=== PATIENT | male | born 1980 | race Caucasian/White ===

== ENCOUNTER → 2017-02-27 | Outpatient (CLI) | payer OTHER ==
[~2017-02-27] MED LIST: CHOL100027 PO; GLGKIT INJ; HMLI SC; INSDGI SC; INSDGIPEN SC; NVLG SQ; ONDA4TAB10 SL
[2017-02-27 13:49] LABS: ESTIMATED AVERAGE GLUCOSE 180 mg/dl; HA1C FLAG Normal (Normal)
== END | disposition home or self-care (01) ==
LOC: C.LAB1850 11:48
PROVIDERS: ATTEND Internal Medicine Endocrinology, Diabetes & Metabolism
DX: E55.9 Vitamin D deficiency, unspecified (principal); E10.9 Type 1 diabetes mellitus without complications

== ENCOUNTER 2017-03-07 15:13 | Emergency (ER) | payer OTHER ==
[~2017-03-07 15:13] MED LIST changes: -CHOL100027 PO; -GLGKIT INJ; -INSDGIPEN SC; -NVLG SQ; -ONDA4TAB10 SL
[2017-03-07 15:16] VITALS: TEMP 36.6; Ht 175.3 cm
[2017-03-07] MEDS ORDERED: SODIUM CHLORIDE 0.9% 1000ML 1,000 ML IV STA (15:46)
[2017-03-07] MEDS ORDERED: NVLG SQ (15:58)
[2017-03-07] MEDS ORDERED: CHOL100027 PO (15:58)
[2017-03-07] MEDS ORDERED: INSDGIPEN SC (15:58)
[2017-03-07] MEDS ORDERED: GLGKIT INJ (15:58)
[2017-03-07 16:12] LABS: BASO % 0.2 %; BASO ABS # 0.03 K/uL (0-0.2); COMPLETE YES; EOS % 0.1 %; HEMATOCRIT 43.9 % (42-52); IG% 0.2 %; LYMPH % 5.3 %; LYMPH ABS # 0.71 K/uL (1.2-3.4); MEAN CELL VOLUME 98.4 fL (80-100); MEAN CORPUSCULAR HEMOGLOBIN 35.2 pg (25-34); MEAN CORPUSCULAR HGB CONC 35.8 g/dl (32-36); NEUT % 89.2 %; PLATELET COUNT 204 K/uL (130-400); RED BLOOD COUNT 4.46 M/uL (4.7-6.1); WHITE BLOOD COUNT 13.52 K/uL (4.8-10.8)
[2017-03-07 16:30] LABS: BLOOD UREA NITROGEN 16 mg/dl (7-18); BUN/CREATININE RATIO 26.5 (10-20); CALCIUM 8.6 mg/dl (8.5-10.1); CARBON DIOXIDE 26 mmol/L (21-32); CHLORIDE 110 mmol/L (98-107); CREATININE 0.61 mg/dl (0.60-1.40); GLUCOSE 153 mg/dl (70-99); POTASSIUM 4.1 mmol/L (3.5-5.1); SODIUM 144 mmol/L (136-145)
[2017-03-07 16:40] LABS: THYROID STIMULATING HORMONE 0.793 uIu/ml (0.300-4.500)
--- NOTE | 2017-03-07 16:46 | EMERGENCY ROOM VISIT NOTE ---
History Report prepared by [place]: Adama Vang Under the Supervision of: Dr. John Paul Doyle D.O. First contact with patient: 15:39 Chief Complaint: HYPOGLYCEMIA Stated Complaint: TYPE 1 DIABETES Nursing Triage Summary: Pt reports his BSG went "super low. All I remember is waking up after my sister gave me a glucagon shot." BSG taken following shot was 91 per pt report. BSG in triage 136 History of Present Illness The patient is a 36 year old male who presents to the Emergency Room with complaints of an episode of hypoglycemia occurring about 1.5 hours ago. He notes that this occurs occasionally in the morning and that he is able to normalize his blood sugar with having apples or juice, but reports that this episode was worse. He took 24 of Lantis at 0230 this morning, and his sister needed to administer a glucagon shot, after which his blood sugar was 91. He notes his blood sugar here was 136. The patient last ate last night. He notes currently having bilateral leg pain, and is unable to bear weight. He remarks that he feels like he needs a cane to walk right now. Source of History: patient Onset: about 1.5 hours ago Position: other (blood) Quality: other (hypoglycemia) Timing: other (episode) Note: The patient notes having bilateral leg pain. Review of Systems See HPI for pertinent positives & negatives. A total of 10 systems reviewed and were otherwise negative. Past Medical & Surgical Medical Problems: (1) History of diabetes mellitus Family History No pertinent family history stated. Social History Smoking Status: Current Every Day Smoker Occupation Status: employed Current/Historical Medications Scheduled Cholecalciferol (Vitamin D 1000 Unit), 1,000 INTER.UNIT PO DAILY Glucagon (Glucagon Emergency Kit), 1 MG INJ UD Insulin Aspart (Novolog), 20-25 UNITS SQ AC Insulin Glargine (Lantus Solostar), 24 UNITS SC QPM Allergies Coded Allergies: No Known Allergies (Unverified , 07/08/15) Physical Exam Vital Signs Date Time Temp Pulse Resp B/P Pulse Ox O2 Delivery O2 Flow Rate FiO2 03/07/17 16:00 85 03/07/17 15:16 36.6 92 20 159/105 97 Room Air Physical Exam CONSTITUTIONAL/VITAL SIGNS: Reviewed / noted above. GENERAL: Non-toxic in appearance. INTEGUMENTARY: Warm, dry, and [place]. HEAD: Normocephalic. EYES: without scleral icterus or trauma. ENT/OROPHARYNX: clear and moist. LYMPHADENOPATHY/NECK: Is supple without lymphadenopathy or meningismus. RESPIRATORY: Lungs clear and equal. CARDIOVASCULAR: Regular rate and rhythm. GI/ABDOMEN: Soft and nontender. No organomegaly or pulsatile mass. No rebound or guarding. Normal bowel sounds. EXTREMITIES: Mild tenderness to the superior calves bilaterally. BACK: No CVA tenderness. NEUROLOGICAL: Intact without focal deficits. PSYCHIATRIC: normal affect. MUSCULOSKELETAL: Normally developed with good muscle tone. Medical Decision & Procedures Laboratory Results 03/07/17 16:00 Red Blood Count 4.46, Mean Corpuscular Volume 98.4, Mean Corpuscular Hemoglobin 35.2, Mean Corpuscular Hemoglobin Concent 35.8, Mean Platelet Volume 10.0, Neutrophils (%) (Auto) 89.2, Lymphocytes (%) (Auto) 5.3, Monocytes (%) (Auto) 5.0, Eosinophils (%) (Auto) 0.1, Basophils (%) (Auto) 0.2, Neutrophils # (Auto) 12.05, Lymphocytes # (Auto) 0.71, Monocytes # (Auto) 0.68, Eosinophils # (Auto) 0.02, Basophils # (Auto) 0.03 03/07/17 16:00 Test 03/07/17 15:17 03/07/17 16:00 Bedside Glucose 136 mg/dl (70-99) White Blood Count 13.52 K/uL (4.8-10.8) Red Blood Count 4.46 M/uL (4.7-6.1) Hemoglobin 15.7 g/dL (14.0-18.0) Hematocrit 43.9 % (42-52) Mean Corpuscular Volume 98.4 fL (80-100) Mean Corpuscular Hemoglobin 35.2 pg (25-34) Mean Corpuscular Hemoglobin Concent 35.8 g/dl (32-36) Platelet Count 204 K/uL (130-400) Mean Platelet Volume 10.0 fL (7.4-10.4) Neutrophils (%) (Auto) 89.2 % Lymphocytes (%) (Auto) 5.3 % Monocytes (%) (Auto) 5.0 % Eosinophils (%) (Auto) 0.1 % Basophils (%) (Auto) 0.2 % Neutrophils # (Auto) 12.05 K/uL (1.4-6.5) Lymphocytes # (Auto) 0.71 K/uL (1.2-3.4) Monocytes # (Auto) 0.68 K/uL (0.11-0.59) Eosinophils # (Auto) 0.02 K/uL (0-0.5) Basophils # (Auto) 0.03 K/uL (0-0.2) RDW Standard Deviation 44.7 fL (36.4-46.3) RDW Coefficient of Variation 12.4 % (11.5-14.5) Immature Granulocyte % (Auto) 0.2 % Immature Granulocyte # (Auto) 0.03 K/uL (0.00-0.02) D-Dimer < 190 ug/L FEU (0-500) Anion Gap 8.0 mmol/L (3-11) Estimated GFR () 150.0 Estimated GFR (Non- 129.4 BUN/Creatinine Ratio 26.5 (10-20) Calcium Level 8.6 mg/dl (8.5-10.1) Thyroid Stimulating Hormone (TSH) 0.793 uIu/ml (0.300-4.500) Laboratory results as stated above per my review. Medications Administered Medications (Trade) Dose Ordered Sig/Amber Route Start Time Stop Time Status Last Admin Dose Admin Sodium Chloride (Nss 1000ml) 1,000 ml @ 999 mls/hr Q1H1M STAT IV 03/07/17 15:46 03/07/17 16:46 DC 03/07/17 16:01 999 MLS/HR ED Course 1541: Previous medical records were reviewed. The patient was evaluated in room A12B. A complete history and physical examination was performed. 1546: Ordered NSS 1,000 ml @ 999 mls/hr IV. 1655: On reevaluation, the patient is doing well. I discussed the results and findings with the patient. He verbalized agreement of the treatment plan. The patient was discharged home. Medical Decision Differential includes acute coronary syndrome, myocardial infarction, CVA, TIA, anemia, infection, pneumonia, UTI, pyelonephritis, poor nutrition, dehydration, electrolyte disturbance,hypoglycemia. This is a 36-year-old male who presents to the ED with a chief complaint of low blood sugar. The patient states that he worked until around 2:30 AM. When he was finished with work he took 24 units of Lantus. Around 2:10 PM, his family found him to be semi-responsive and agitated. They were unable to check a blood sugar but did give him an IM injection of glucose down. By the time EMS arrived, his blood sugar was 91. He was acting more normal. He was brought in for evaluation. His initial blood sugar here was 133. He last ate around 10: 30 PM yesterday. His vital signs here are normal. His physical exam was normal. He did complain of some upper calf pain. The family states that he was thrashing his legs about when he was fighting them during his hypoglycemic episode. His exam did not reveal any other significant abnormalities. He did have some mild tenderness in the upper calves bilaterally. This was not present yesterday. CBC is unremarkable. PRP is normal. D-dimer was negative. The patient was told results the test. He is felt to be stable for discharge. He was hydrated IV fluids. He was fed. Impression Primary Impression: Hypoglycemia Additional Impression: Bilateral calf pain Scribe Attestation The scribe's documentation has been prepared under my direction and personally reviewed by me in its entirety. I confirm that the note above accurately reflects all work, treatment, procedures, and medical decision making performed by me. Departure Information Dispostion Home / Self-Care Referrals No Doctor, Assigned (PCP) Forms HOME CARE DOCUMENTATION FORM, IMPORTANT VISIT INFORMATION, WORK / SCHOOL INSTRUCTIONS Patient Instructions Hypoglycemia, My [facility] Additional Instructions Follow-up with your doctor for further care and evaluation in 1-7 days as needed. Return to the emergency department for worsening or new symptoms or any concerns. You have been examined and treated today on an emergency basis only. This is not a substitute for, or an effort to provide, complete comprehensive medical care. It is impossible to recognize and treat all injuries or illnesses in a single emergency department visit. It is therefore important that you follow up closely with your doctor. Call as soon as possible for an appointment. Problem Qualifiers
[2017-03-07 17:00] VITALS: BP 130/79; PULSE 85; O2SAT 97
== END 2017-03-07 17:01 | disposition home or self-care (01) ==
LOC: C.EDB 15:14 → C.EDA 17:01
DX: E10.649 Type 1 diabetes mellitus with hypoglycemia without coma (principal); M79.604 Pain in right leg; M79.605 Pain in left leg; F17.200 Nicotine dependence, unspecified, uncomplicated

== ENCOUNTER → 2017-05-27 | Outpatient (CLI) | payer OTHER ==
[~2017-05-27] MED LIST changes: +CHOL100027 PO; +GLGKIT INJ; -HMLI SC; -INSDGI SC; +INSDGIPEN SC; +NVLG SQ
[2017-05-27 18:10] LABS: CHOLESTEROL/HDL RATIO 2.3
[2017-05-27 18:31] LABS: RATIO 19.7 mcg/mg (0-30.0)
[2017-05-28 06:48] LABS: ESTIMATED AVERAGE GLUCOSE 189 mg/dl; HA1C FLAG Normal (Normal)
== END | disposition home or self-care (01) ==
LOC: C.LAB1850 16:15
PROVIDERS: ATTEND Internal Medicine Endocrinology, Diabetes & Metabolism
DX: E55.9 Vitamin D deficiency, unspecified (principal); E10.9 Type 1 diabetes mellitus without complications

== ENCOUNTER 2017-07-24 09:36 | Observation (INO) | payer OTHER ==
[~2017-07-24] VITALS: Ht 175.3 cm; Wt 72.0 kg
[2017-07-24] MEDS ORDERED: ONDANSETRON 8 MG/54 ML D5W IV STA (09:57)
[2017-07-24] MEDS ORDERED: SODIUM CHLORIDE 0.9% 1000ML 1,000 ML IV STA ×2 (09:57)
[2017-07-24 10:18] LABS: BASO % 0.1 %; BASO ABS # 0.02 K/uL (0-0.2); COMPLETE YES; HEMATOCRIT 48.2 % (42-52); IG% 0.3 %; LYMPH % 6.7 %; LYMPH ABS # 0.98 K/uL (1.2-3.4); MEAN CELL VOLUME 101.7 fL (80-100); MEAN CORPUSCULAR HEMOGLOBIN 33.3 pg (25-34); MEAN CORPUSCULAR HGB CONC 32.8 g/dl (32-36); MEAN PLATELET VOLUME 10.8 fL (7.4-10.4); MONO % 5.8 %; NEUT % 87.1 %; PLATELET COUNT 276 K/uL (130-400); RED BLOOD COUNT 4.74 M/uL (4.7-6.1); WHITE BLOOD COUNT 14.58 K/uL (4.8-10.8)
[2017-07-24 10:45] LABS: POTASSIUM 4.5 mmol/L (3.5-5.1)
[2017-07-24 10:50] LABS: BUN/CREATININE RATIO 16.1 (10-20); CALCIUM 9.6 mg/dl (8.5-10.1); CREATININE 1.5 mg/dl (0.60-1.40)
--- NOTE | 2017-07-24 10:58 | DIAGNOSTIC IMAGING REPORT ---
CHEST ONE VIEW PORTABLE CLINICAL HISTORY: Fever vomiting sore throat COMPARISON STUDY: No previous studies for comparison. FINDINGS: The cardiac and mediastinal contours are normal. There is no evidence of focal pulmonary consolidation. There is no evidence of failure. No pleural effusions are visualized.[ IMPRESSION: No active disease in the chest. Electronically signed by: Rom Francois M.D. 07/24/2017 10:56 AM Dictated Date/Time: 07/24/2017 10:55 AM
[2017-07-24 11:03] LABS: URINE APPEARANCE CLEAR (CLEAR); URINE BILIRUBIN NEG (NEG); URINE COLOR YELLOW; URINE NITRITE NEG (NEG); URINE SPECIFIC GRAVITY 1.036 (1.000-1.030); UROBILINOGEN NEG (NEG); ZZUR CULT IF INDIC CLEAN CATCH NO
[2017-07-24] MEDS ORDERED: INSULIN IV INFUSION PROTOCOL STA (11:10)
[2017-07-24 11:12] LABS: MANUAL MICROSCOPIC REQUIRED? NO; REVIEW REQ? NO
[2017-07-24] MEDS ORDERED: MODERATE STRESS LEVEL ONE (11:15)
[2017-07-24] MEDS ORDERED: PENDING D5 1/2NS+40mEq KCL IVF SCH (11:15)
[2017-07-24] MEDS ORDERED: DKA GOAL RANGE 150-250 mg/dl 1 EA ONE (11:15)
[2017-07-24 11:22] LABS: BETA-HYDROXYBUTYRATE 90.38 mg/dL (0.2-2.81)
--- NOTE | 2017-07-24 11:44 | EMERGENCY ROOM VISIT NOTE ---
History Report prepared by [place]: Stan Mcgill Under the Supervision of: Dr. Tony Peter M.D. First contact with patient: 09:45 Chief Complaint: VOMITING Stated Complaint: FEVER, VOMITING, SHORETHROAT, HEADACHE Nursing Triage Summary: pt has had vomiting since yesterday pt is insulin dependent diabetic, bsbs in 400s pt has haeadache History of Present Illness The patient is a 37 year old white male with a past medical history of diabetes who presents to the ED with a cc of persistent vomiting beginning yesterday. Unable to keep down any food or drink. Vomited over 10 times total. Positive nausea and non-productive cough. Negative abdominal pain, urinary symptoms, or diarrhea. No recent travel. No recent antibiotic use. Did not receive flu shot this year. Blood sugar has been running high recently. Uses Lantus and NovoLog pre-meals. No missed doses of insulin recently. No history of similar symptoms. Last bowel movement was yesterday. Has been able to pass gas today. Source of History: patient Onset: Yesterday Symptom Intensity: over 10 episodes Quality: other (vomiting) Timing: other (persistent) Associated Symptoms: + cough (non-productive), + nausea, No abdominal pain, No diarrhea, No urinary symptoms Review of Systems See HPI for pertinent positives and negatives. A total of ten systems were reviewed and were otherwise negative. Past Medical & Surgical Medical Problems: (1) Gastroenteritis due to food toxin (2) History of diabetes mellitus Family History No pertinent family history stated. Social History Smoking Status: Current Every Day Smoker Occupation Status: employed Current/Historical Medications Scheduled Cholecalciferol (Vitamin D 1000 Unit), 1,000 INTER.UNIT PO DAILY Glucagon (Glucagon Emergency Kit), 1 MG INJ UD Insulin Aspart (Novolog), 1 DOSE SQ DIRECTED Insulin Glargine (Lantus Solostar), 20 UNITS SC QPM Allergies Coded Allergies: No Known Allergies (Unverified , 07/08/15) Physical Exam Vital Signs Date Time Temp Pulse Resp B/P (MAP) Pulse Ox O2 Delivery O2 Flow Rate FiO2 07/24/17 12:07 99 18 141/64 99 Room Air 07/24/17 11:53 98 Room Air 07/24/17 11:43 103 20 133/72 98 Room Air 07/24/17 10:18 86 07/24/17 10:17 98 20 140/77 100 Room Air 07/24/17 09:40 37.0 Room Air Physical Exam GENERAL: Awake, alert, anxious-appearing, NAD HENT: Normocephalic, atraumatic. No exudates. No tonsillar swelling. No uvular deviation. Poor dentition. EYES: Normal conjunctiva. Sclera non-icteric. NECK: Supple. No nuchal rigidity. FROM. RESPIRATORY: CTAB, no rhonchi, wheezing, crackles CARDIAC: Tachycardic with a regular rhythm, no MRG ABDOMEN: Soft, ND, BS+. Epigastric TTP. Negative Al[place]zo, Obturators and Psoas. MSK: No chest wall TTP, no LE edema NEURO: GCS 15, CN 2-12 intact, moves all 4s on command SKIN: No rash or jaundice noted. Medical Decision & Procedures ER Provider Diagnostic Interpretation: X-ray: Per my interpretation, radiologist review. CHEST ONE VIEW PORTABLE FINDINGS: The cardiac and mediastinal contours are normal. There is no evidence of focal pulmonary consolidation. There is no evidence of failure. No pleural effusions are visualized.[ IMPRESSION: No active disease in the chest. Electronically signed by: Rom Francois M.D. 07/24/2017 10:56 AM Laboratory Results 07/24/17 10:00 Red Blood Count 4.74, Mean Corpuscular Volume 101.7, Mean Corpuscular Hemoglobin 33.3, Mean Corpuscular Hemoglobin Concent 32.8, Mean Platelet Volume 10.8, Neutrophils (%) (Auto) 87.1, Lymphocytes (%) (Auto) 6.7, Monocytes (%) ( Auto) 5.8, Eosinophils (%) (Auto) 0.0, Basophils (%) (Auto) 0.1, Neutrophils # ( Auto) 12.69, Lymphocytes # (Auto) 0.98, Monocytes # (Auto) 0.84, Eosinophils # ( Auto) 0.00, Basophils # (Auto) 0.02 Test 07/24/17 10:00 07/24/17 10:09 07/24/17 10:50 07/24/17 12:16 White Blood Count 14.58 K/uL (4.8-10.8) Red Blood Count 4.74 M/uL (4.7-6.1) Hemoglobin 15.8 g/dL (14.0-18.0) Hematocrit 48.2 % (42-52) Mean Corpuscular Volume 101.7 fL (80-100) Mean Corpuscular Hemoglobin 33.3 pg (25-34) Mean Corpuscular Hemoglobin Concent 32.8 g/dl (32-36) Platelet Count 276 K/uL (130-400) Mean Platelet Volume 10.8 fL (7.4-10.4) Neutrophils (%) (Auto) 87.1 % Lymphocytes (%) (Auto) 6.7 % Monocytes (%) (Auto) 5.8 % Eosinophils (%) (Auto) 0.0 % Basophils (%) (Auto) 0.1 % Neutrophils # (Auto) 12.69 K/uL (1.4-6.5) Lymphocytes # (Auto) 0.98 K/uL (1.2-3.4) Monocytes # (Auto) 0.84 K/uL (0.11-0.59) Eosinophils # (Auto) 0.00 K/uL (0-0.5) Basophils # (Auto) 0.02 K/uL (0-0.2) RDW Standard Deviation 44.1 fL (36.4-46.3) RDW Coefficient of Variation 11.8 % (11.5-14.5) Immature Granulocyte % (Auto) 0.3 % Immature Granulocyte # (Auto) 0.05 K/uL (0.00-0.02) Venous Blood pH 7.28 (7.36-7.41) Total Bilirubin 0.8 mg/dl (0.2-1) Direct Bilirubin 0.2 mg/dl (0-0.2) Aspartate Amino Transf (AST/SGOT) 33 U/L (15-37) Alanine Aminotransferase (ALT/SGPT) 39 U/L (12-78) Alkaline Phosphatase 65 U/L (45-117) Total Protein 8.3 gm/dl (6.4-8.2) Albumin 4.4 gm/dl (3.4-5.0) Lipase 78 U/L (73-393) Bedside Lactic Acid Venous 3.69 mmol/L (0.90-1.70) Urine Color YELLOW Urine Appearance CLEAR (CLEAR) Urine pH 5.0 (4.5-7.5) Urine Specific [place] 1.036 (1.000-1.030) Urine Protein TRACE (NEG) Urine Glucose (UA) 3+ (NEG) Urine Ketones 4+ (NEG) Urine Occult Blood NEG (NEG) Urine Nitrite NEG (NEG) Urine Bilirubin NEG (NEG) Urine Urobilinogen NEG (NEG) Urine Leukocyte Esterase NEG (NEG) Urine WBC (Auto) 0 /hpf (0-5) Urine RBC (Auto) 0-4 /hpf (0-4) Urine Hyaline Casts (Auto) 1-5 /lpf (0-5) Urine Epithelial Cells (Auto) 5-10 /lpf (0-5) Urine Bacteria (Auto) NEG (NEG) Est Creatinine Clear Calc Drug Dose 97.9 ml/min Laboratory results reviewed by me Medications Administered Medications (Trade) Dose Ordered Sig/Amber Route Start Time Stop Time Status Last Admin Dose Admin Sodium Chloride 1,000 ml @ 999 mls/hr Q1H1M STAT IV 07/24/17 09:57 07/24/17 10:57 DC 07/24/17 10:16 999 MLS/HR Ondansetron HCl (Zofran 8mg Iv) 8 mg NOW STAT IV 07/24/17 09:57 07/24/17 09:58 DC 07/24/17 10:16 8 MG Sodium Chloride 1,000 ml @ 999 mls/hr Q1H1M STAT IV 07/24/17 09:57 07/24/17 10:57 DC 07/24/17 11:09 999 MLS/HR Sodium Chloride 1,000 ml @ 999 mls/hr Q1H1M IV 07/24/17 12:00 07/24/17 13:37 DC 07/24/17 12:00 999 MLS/HR ED Course 0947: The patient was evaluated in room B8. A complete history and physical exam was performed. Bedside BSG is 345. 0957: ORdered Sodium Chloride 1000 ml @ 999 mls/hr IV, Zofran 8 mg IV, Sodium Chloride 1000 ml @ 999 mls/hr IV. 110: Ordered Insulin IV Infusion Protocol. 1135: Upon reexamination, the patient was resting comfortably. I discussed the test results and treatment plan with him. The patient will be evaluated for further management. Medical Decision The patient is a 37 year old white male with a past medical history of diabetes who presents to the ED with a cc of persistent vomiting beginning yesterday. Differential diagnosis includes etiologies such as DKA, appendicitis, diverticulitis, PUD, biliary pathology, UTI, pancreatitis, obstruction, mesenteric ischemia, aortic pathology, infections, inflammatory bowel disease, renal colic, as well as others were entertained. Patient was seen and evaluated. Patient had concerning signs for diabetic ketoacidosis as the patient had elevated blood sugars and anion gap decreased bicarbonate lactate and elevated beta hydroxybutyrate. Patient was given fluids and started on insulin drip. Patient was admitted to the hospitalist service. Patient was subsequently transitioned sliding scale and was able to tolerate by mouth fluids at the bedside. Patient's nausea had resolved. Medication Reconcilliation Current Medication List: was personally reviewed by me Blood Pressure Screening Patient's blood pressure: Elevated blood pressure Blood pressure disposition: Elevated BP felt to be situational Consults Time Called: 1138 Consulting Physician[facility] [place] Returned Call: [phone] Discussed the patient's case. The patient will be evaluated for further treatment and disposition. Impression Primary Impression: DKA (diabetic ketoacidoses) Additional Impressions: Hyperglycemia Lactic acid acidosis Nausea & vomiting Critical Care I have personally spent greater than 47 minutes of critical care time in the direct management of this patient. This includes bedside care, interpretation of diagnostic studies, and testing, discussion with consultants, patient, and family members, and other required patient management activities. This 47 minutes is in excess of all separately billable procedures. Scribe Attestation The scribe's documentation has been prepared under my direction and personally reviewed by me in its entirety. I confirm that the note above accurately reflects all work, treatment, procedures, and medical decision making performed by me. Departure Information Dispostion Being Evaluated By Hospitalist Referrals RV. Montgomery MD (PCP) Patient Instructions My [facility] Problem Qualifiers Primary Impression: DKA (diabetic ketoacidoses) Diabetes mellitus type: type 1 Diabetes mellitus complication detail: without coma Qualified Codes: E10.10 - Type 1 diabetes mellitus with ketoacidosis without coma Additional Impressions: Nausea & vomiting Vomiting type: unspecified Vomiting Intractability: non-intractable Qualified Codes: R11.2 - Nausea with vomiting, unspecified
[2017-07-24 11:53] VITALS: O2SAT 98; BMI 22.1
[2017-07-24] MEDS ORDERED: INSULIN HUMAN REGULAR IV BOLUS 1.5 UNIT in SYRINGE 0 ML IV ONE (12:00)
[2017-07-24] MEDS ORDERED: INSULIN REGULAR 250 UNITS in SODIUM CHLORIDE 0.9% 250ML 250 ML IV SCH (12:00)
[2017-07-24] MEDS ORDERED: SODIUM CHLORIDE 0.9% 1000ML 1,000 ML IV SCH (12:00)
[2017-07-24] MEDS ORDERED: ONDANSETRON INJ 2 MG/ML 2 ML VIAL IV PRN (12:15)
[2017-07-24] MEDS ORDERED: ACETAMINOPHEN 325 MG TAB PO PRN (12:15)
[2017-07-24] MEDS ORDERED: ZOLPIDEM TARTRATE 5 MG TAB PO PRN (12:15)
[2017-07-24] MEDS ORDERED: GLUCAGON FOR INJ 1 MG VIAL SQ PRN (12:30)
[2017-07-24] MEDS: INSULIN ASPART 100 UNITS/ML 3 ML PEN SC SCH ×6 (12:30→22:34)
[2017-07-24] MEDS ORDERED: GLUCOSE 10 TABS/TUBE PO PRN (12:30)
[2017-07-24] MEDS ORDERED: DEXTROSE 50% 50 ML SYR IV PRN (12:30)
[2017-07-24] MEDS ORDERED: GLUCOSE 40% GEL 15 GM TUBE PO PRN (12:30)
--- NOTE | 2017-07-24 12:37 | History and Physical ---
History & Physical Date & Time of Service: Jul 24, 2017 at 12:23 Chief Complaint: Fever, Vomiting, Shorethroat, Headache Primary Care Physician: RV. Montgomery MD History of Present Illness Source: patient, family The patient is a 37-year-old male who presents emergency department with 7-8 episodes of nausea and vomiting since yesterday afternoon. 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 He reports that he vomited and pupils yards on several occasions on the way home, and lay down in the grass for a while. He was sipping propel drink frequently. He reports he continued to have episodes of nausea and vomiting overnight, and then upon the urging of his family this morning, who presents emergency department for assessment. He typically takes Lantus insulin at 12:30 1:00 in the morning when he gets home from work. He did take his Lantus last night at 3:00 AM. He has not had any recent travels or any sick exposures. Family History Noncontributory Social History Smoking Status: Current Every Day Smoker Smokeless Tobacco Use: No Alcohol Use: none Drug Use: cocaine Marital Status: in relationship Housing status: lives with significant other Occupational Status: employed Immunizations History of Influenza Vaccine: Unknown History of Tetanus Vaccine?: Unknown History of Pneumococcal: Unknown History of Hepatitis B Vaccine: Unknown Multi-Drug Resistant Organisms History of MDRO: No Allergies Coded Allergies: No Known Allergies (Unverified , 07/08/15) Home Medications Scheduled Cholecalciferol (Vitamin D 1000 Unit), 1,000 INTER.UNIT PO DAILY Glucagon (Glucagon Emergency Kit), 1 MG INJ UD Insulin Aspart (Novolog), 1 DOSE SQ DIRECTED Insulin Glargine (Lantus Solostar), 20 UNITS SC QPM Review of Systems The patient denies chest pain, palpitations, shortness of breath, cough, lower extremity swelling, vision change, hearing change, sore throat, fevers, chills, sweats, weight change, fatigue, diarrhea or constipation, pelvic pain, blood in urine or stool, dysuria, urinary frequency or urgency, dizziness, headache, memory loss, rash, abnormal bruising or bleeding, imbalance, focal or generalized weakness, numbness or tingling in arms or legs, generalized arthralgias or myalgias, back or neck pain, night sweats, or allergy symptoms. The review of systems is otherwise negative other than for that already noted above, and at least 10 systems have been reviewed. Physical Exam Vital Signs Date Time Temp Pulse Resp B/P (MAP) Pulse Ox O2 Delivery O2 Flow Rate FiO2 07/24/17 12:07 99 18 141/64 99 Room Air 07/24/17 11:53 98 Room Air 07/24/17 11:43 103 20 133/72 98 Room Air 07/24/17 10:18 86 07/24/17 10:17 98 20 140/77 100 Room Air 07/24/17 09:40 37.0 Room Air The patient is awake, alert and oriented 3, normocephalic and atraumatic, facial complexion is acutely alyce, looks very dehydrated, otherwise is lying in bed and in no acute distress. HEENT--PERRL, EOMI, mucous membranes and oropharynx very dry. Neck--supple, no JVD or bruits, thyroid normal, trachea midline, no adenopathy. Heart--normal S1 and S2, no extra beats, no murmurs, rubs or gallops. Lungs--clear bilaterally with good air movement, no respiratory distress, no accessory muscle use. Abdomen--normal bowel sounds and soft, nontender and nondistended, no hernias or masses, no organomegaly. Extremities--no cyanosis, clubbing or edema. There are good distal pulses b/l. Dermatologic--normal skin turgor, normal color, warm and dry, no abnormal lymph nodes, no rash. Neurologic--cranial nerves II through XII grossly intact, motor and sensory examination normal. Rheumatologic--normal range of motion, nontender, muscles and joints. Psychiatric--normal affect. Diagnostics Laboratory Results Results Past 24 Hours Test 07/24/17 09:50 07/24/17 10:00 07/24/17 10:09 07/24/17 10:50 Range/Units Bedside Glucose 345 70-99 mg/dl White Blood Count 14.58 4.8-10.8 K/uL Red Blood Count 4.74 4.7-6.1 M/uL Hemoglobin 15.8 14.0-18.0 g/dL Hematocrit 48.2 42-52 % Mean Corpuscular Volume 101.7 80-100 fL Mean Corpuscular Hemoglobin 33.3 25-34 pg Mean Corpuscular Hemoglobin Concent 32.8 32-36 g/dl Platelet Count 276 130-400 K/uL Mean Platelet Volume 10.8 7.4-10.4 fL Neutrophils (%) (Auto) 87.1 % Lymphocytes (%) (Auto) 6.7 % Monocytes (%) (Auto) 5.8 % Eosinophils (%) (Auto) 0.0 % Basophils (%) (Auto) 0.1 % Neutrophils # (Auto) 12.69 1.4-6.5 K/uL Lymphocytes # (Auto) 0.98 1.2-3.4 K/uL Monocytes # (Auto) 0.84 0.11-0.59 K/uL Eosinophils # (Auto) 0.00 0-0.5 K/uL Basophils # (Auto) 0.02 0-0.2 K/uL RDW Standard Deviation 44.1 36.4-46.3 fL RDW Coefficient of Variation 11.8 11.5-14.5 % Immature Granulocyte % (Auto) 0.3 % Immature Granulocyte # (Auto) 0.05 0.00-0.02 K/uL Venous Blood pH 7.28 7.36-7.41 Sodium Level 136 136-145 mmol/L Potassium Level 4.5 3.5-5.1 mmol/L Chloride Level 101 98-107 mmol/L Carbon Dioxide Level 14 21-32 mmol/L Anion Gap 21.0 3-11 mmol/L Blood Urea Nitrogen 24 7-18 mg/dl Creatinine 1.50 0.60-1.40 mg/dl Est Creatinine Clear Calc Drug Dose 65.3 ml/min Estimated GFR () 68.4 Estimated GFR (Non- 59.0 BUN/Creatinine Ratio 16.1 10-20 Random Glucose 338 70-99 mg/dl Calcium Level 9.6 8.5-10.1 mg/dl Total Bilirubin 0.8 0.2-1 mg/dl Direct Bilirubin 0.2 0-0.2 mg/dl Aspartate Amino Transf (AST/SGOT) 33 15-37 U/L Alanine Aminotransferase (ALT/SGPT) 39 12-78 U/L Alkaline Phosphatase 65 45-117 U/L Total Protein 8.3 6.4-8.2 gm/dl Albumin 4.4 3.4-5.0 gm/dl Lipase 78 73-393 U/L Beta-Hydroxybutyric Acid 90.38 0.2-2.81 mg/dL Bedside Lactic Acid Venous 3.69 0.90-1.70 mmol/L Urine Color YELLOW Urine Appearance CLEAR CLEAR Urine pH 5.0 4.5-7.5 Urine Specific Gunpowder 1.036 1.000-1.030 Urine Protein TRACE NEG Urine Glucose (UA) 3+ NEG Urine Ketones 4+ NEG Urine Occult Blood NEG NEG Urine Nitrite NEG NEG Urine Bilirubin NEG NEG Urine Urobilinogen NEG NEG Urine Leukocyte Esterase NEG NEG Urine WBC (Auto) 0 0-5 /hpf Urine RBC (Auto) 0-4 0-4 /hpf Urine Hyaline Casts (Auto) 1-5 0-5 /lpf Urine Epithelial Cells (Auto) 5-10 0-5 /lpf Urine Bacteria (Auto) NEG NEG Test 07/24/17 11:37 07/24/17 11:58 07/24/17 12:06 Range/Units Bedside Glucose 268 70-99 mg/dl Diagnostic Radiology Patient Name: GONZALO LINDQUIST Unit Number: [id number] Dictated: 07/24/171054 Transcribed: 07/24/171054 ARG Printed Date/Time: [~ rep prt dt]/[~ rep prt tm] [~ rep ct labl] - [~ rep ct ivnm] [facility] Radiology [place] [address] Dictated: 07/24/171054 Transcribed: 07/24/171054 ARG Printed Date/Time: [~ rep prt dt]/[~ rep prt tm] [~ rep ct labl] - [~ rep ct ivnm] CHEST ONE VIEW PORTABLE CLINICAL HISTORY: Fever vomiting sore throat COMPARISON STUDY: No previous studies for comparison. FINDINGS: The cardiac and mediastinal contours are normal. There is no evidence of focal pulmonary consolidation. There is no evidence of failure. No pleural effusions are visualized.[ IMPRESSION: No active disease in the chest. Electronically signed by: Rom Francois M.D. 07/24/2017 10:56 AM Dictated Date/Time: 07/24/2017 10:55 AM The status of this report is Signed. Draft = Not yet reviewed or approved by Radiologist. Signed = Reviewed and approved by Radiologist. <AttendingPhy></AttendingPhy> <FamilyPhy>RV. Montgomery MD</ FamilyPhy> <PrimaryPhy>RV. Montgomery MD</PrimaryPhy> <UnitNumber> [id number]</UnitNumber> <VisitNumber>[id number]</VisitNumber> <PatientName> GONZALO LINDQUIST</PatientName> <DateOfBirth>1980</DateOfBirth> <Location>[facility] </Location> <ServiceDate>07/24/17</ServiceDate> <MNE>ESINDI</MNE> <OrderingPhy> Tony Peter M.D.</OrderingPhy> <OrderingPhyMNE>f rep ord dr aguiar</ OrderingPhyMNE> <DictatingPhyMNE>f rep dict dr aguiar</DictatingPhyMNE> <CCListMNE> f rep ct pelone</CCListMNE> <AdmittingPhyMNE>f pt admit dr aguiar</AdmittingPhyMNE> < AttendingPhyMNE>f pt attend dr aguiar</AttendingPhyMNE> <ConsultingPhyMNE>f pt consult dr aguiar</ConsultingPhyMNE> <FamilyPhyMNE>f pt fam dr aguiar</FamilyPhyMNE> <OtherPhyMNE>f pt other dr aguiar</OtherPhyMNE> < PrimaryPhyMNE>f pt prim care dr aguiar</PrimaryPhyMNE> <ReferringPhyMNE>f pt referring dr aguiar</ReferringPhyMNE> Impression Assessment and Plan DKA in a type I diabetic who is usually under good control/secondary to gastroenteritis due to food toxin-- Admitted to telemetry unit due to need for frequent glucose monitoring. He took his usual dosing of Lantus 20 units at approximately 3 AM. He usually takes it around 12:30 -1:00 AM when he gets home from work. He reports he is feeling better after 2 L of fluid in the emergency department. He reports that he ate a lot of hot sauce on top of chicken fingers approximately 36 hours ago and that this was the likely offending agent. Check a BMP, magnesium, phosphorus, venous blood gas, beta hydroxybutyric acid at 4 intervals for the next [address] on D5 half-normal saline which KCl 20 mEq at 250 ML's per hour. Patient will have Accu-Cheks every 2 hours, and will provide his own scale for coverage, and will notify nursing of blood sugar level and coverage that he has used. Zofran 4 mg IV every 6 hours when necessary with repeat in 30 minutes if needed. Famotidine 20 mg IV every 12 hours with first dose now. Level of Care Telemetry Advanced Directives Existing Advance Directive: No Existing Living Will: No Existing Power of Cloth Handler: No Resuscitation Status FULL RESUSCITATION VTE Prophylaxis VTE Risk Assessment Done? Y/N: Yes Risk Level: Low Given or contraindicated: SCD's Social Service Consult None Apply
[2017-07-24 13:00] VITALS: BP 123/65; PULSE 99; TEMP 36.9; O2SAT 99
[2017-07-24] MEDS ORDERED: INSULIN ASPART 100 UNITS/ML 3 ML PEN SC SCH (13:00)
[2017-07-24 13:12] LABS: BLOOD UREA NITROGEN 20 mg/dl (7-18); BUN/CREATININE RATIO 20.4 (10-20); CARBON DIOXIDE 17 mmol/L (21-32); CHLORIDE 107 mmol/L (98-107); GLUCOSE 250 mg/dl (70-99); SODIUM 137 mmol/L (136-145)
[2017-07-24] MEDS ORDERED: FAMOTIDINE IV INJ 20 MG in DEXTROSE 5% 100ML 100 ML IV STA (13:34)
[2017-07-24] MEDS: D5W AND 1/2NSS + 20MEQ KCL 1,000 ML IV SCH ×2 (14:01→17:59)
[2017-07-24 14:04] LABS: POTASSIUM 4.6 mmol/L (3.5-5.1)
[2017-07-24 14:17] LABS: CALCIUM 8.1 mg/dl (8.5-10.1)
[2017-07-24 14:50] LABS: BETA-HYDROXYBUTYRATE 76.36 mg/dL (0.2-2.81)
[2017-07-24 16:00] VITALS: O2SAT 99; Ht 175.3 cm; Wt 72.0 kg
[2017-07-24 16:50] LABS: BETA-HYDROXYBUTYRATE 38.55 mg/dL (0.2-2.81); BUN/CREATININE RATIO 17.9 (10-20); CALCIUM 8.1 mg/dl (8.5-10.1); MAGNESIUM 1.9 mg/dl (1.8-2.4); PHOSPHORUS 1.5 mg/dl (2.5-4.9); POTASSIUM 4.6 mmol/L (3.5-5.1)
[2017-07-24] MEDS ORDERED: POTASSIUM PHOS 3 MMOL/1 ML INFUSION IV STA (17:00)
[2017-07-24] MEDS ORDERED: POTASSIUM PHOSPHATE INJ 30 MMOL in SODIUM CHLORIDE 0.9% 500ML 500 ML IV ONE (18:00)
[2017-07-24] MEDS ORDERED: NURSING VERBAL MED ORDER STA (18:37)
[2017-07-24 19:01] VITALS: BP 131/57; PULSE 93; TEMP 36.9; O2SAT 98
[2017-07-24] MEDS: SODIUM CHLOR 0.45% + 20MEQ KCL 1,000 ML IV SCH (19:43)
[2017-07-24 20:00] VITALS: O2SAT 98
[2017-07-24] MEDS: FAMOTIDINE IV INJ 20 MG in DEXTROSE 5% 100ML 100 ML IV SCH (20:56)
[2017-07-24 21:10] LABS: BUN/CREATININE RATIO 15.2 (10-20); CALCIUM 8.3 mg/dl (8.5-10.1); CREATININE 0.97 mg/dl (0.60-1.40); POTASSIUM 4.5 mmol/L (3.5-5.1)
[2017-07-24 21:11] LABS: BETA-HYDROXYBUTYRATE 5.86 mg/dL (0.2-2.81); PHOSPHORUS 1.8 mg/dl (2.5-4.9)
[2017-07-24 22:58] VITALS: BP 120/77; PULSE 84; TEMP 36.8; O2SAT 98
[2017-07-25] VITALS (8 sets, daily range): BP systolic 137–149; BP diastolic 77–87; PULSE 58–71; TEMP 37–37.1; O2SAT 97–98
[2017-07-25 00:11] LABS: BUN/CREATININE RATIO 14.6 (10-20); CALCIUM 7.9 mg/dl (8.5-10.1); CREATININE 0.79 mg/dl (0.60-1.40); MAGNESIUM 2.1 mg/dl (1.8-2.4); POTASSIUM 3.9 mmol/L (3.5-5.1)
[2017-07-25 00:12] LABS: BETA-HYDROXYBUTYRATE 3.27 mg/dL (0.2-2.81); PHOSPHORUS 2.3 mg/dl (2.5-4.9)
[2017-07-25] MEDS: INSULIN ASPART 100 UNITS/ML 3 ML PEN SC SCH ×10 (00:30→20:57)
[2017-07-25] MEDS: INSULIN GLARGINE SOLOSTAR 100 UNITS/ML 3 ML PEN SC SCH ×2 (00:40→23:28)
[2017-07-25] MEDS: SODIUM CHLOR 0.45% + 20MEQ KCL 1,000 ML IV SCH ×3 (03:12→22:57)
[2017-07-25 04:39] LABS: BUN/CREATININE RATIO 14.9 (10-20); CALCIUM 8.1 mg/dl (8.5-10.1); CREATININE 0.69 mg/dl (0.60-1.40); MAGNESIUM 1.9 mg/dl (1.8-2.4); POTASSIUM 3.7 mmol/L (3.5-5.1)
[2017-07-25 04:40] LABS: BETA-HYDROXYBUTYRATE 12.1 mg/dL (0.2-2.81)
[2017-07-25] MEDS: CHOLECALCIFEROL 1000 INTER.UNIT TAB PO SCH (08:19)
[2017-07-25 08:43] LABS: BUN/CREATININE RATIO 15.4 (10-20); CALCIUM 8.3 mg/dl (8.5-10.1); CREATININE 0.61 mg/dl (0.60-1.40); MAGNESIUM 1.8 mg/dl (1.8-2.4); POTASSIUM 3.9 mmol/L (3.5-5.1)
[2017-07-25 08:44] LABS: BETA-HYDROXYBUTYRATE 9.42 mg/dL (0.2-2.81); PHOSPHORUS 1.8 mg/dl (2.5-4.9)
[2017-07-25] MEDS: FAMOTIDINE IV INJ 20 MG in DEXTROSE 5% 100ML 100 ML IV SCH ×2 (09:03→20:58)
[2017-07-25] MEDS ORDERED: NURSING VERBAL MED ORDER ONE ×2 (12:45→14:45)
[2017-07-25 12:51] LABS: BUN/CREATININE RATIO 11.3 (10-20); CALCIUM 8.3 mg/dl (8.5-10.1); CREATININE 0.66 mg/dl (0.60-1.40); POTASSIUM 4.1 mmol/L (3.5-5.1)
[2017-07-25 13:02] LABS: BETA-HYDROXYBUTYRATE 9.17 mg/dL (0.2-2.81); PHOSPHORUS 1.5 mg/dl (2.5-4.9)
[2017-07-25] MEDS ORDERED: INSULIN GLARGINE SOLOSTAR 100 UNITS/ML 3 ML PEN SC ONE (15:00)
[2017-07-25] MEDS ORDERED: POTASSIUM PHOS 3 MMOL/1 ML INFUSION IV STA (15:31)
[2017-07-25] MEDS ORDERED: POTASSIUM PHOSPHATE INJ 40 MMOL in SODIUM CHLORIDE 0.9% 1000ML 1,000 ML IV ONE (15:45)
--- NOTE | 2017-07-25 16:46 | Progress Note ---
Subjective Date of Service: Jul 25, 2017. Subjective Pt evaluation today including: conversation w/ patient, conversation w/ family , physical exam, chart review, lab review, review of studies, conversation w/ dairy consultant, review of inpatient medication list Feeling much better, eating lunch, no complaint, blood glucose around 250 Problem List Medical Problems: (1) Bilateral calf pain Status: Acute (2) DKA (diabetic ketoacidoses) Status: Acute (3) Hyperglycemia Status: Acute (4) Hypoglycemia Status: Acute Review of Systems Constitutional: No fever, No chills, No sweats, No weight loss, No weakness, No fatigue, No problem reported Eyes: No worsening of vision, No eye pain, No redness, No discharge, No diplopia ENT: No hearing loss, No unusual epistaxis, No nasal symptoms, No sore throat, No tinnitus, No dental problems, No trouble swallowing Respiratory: No cough, No sputum, No wheezing, No shortness of breath, No dyspnea on exertion, No dyspnea at rest, No hemoptysis Cardiac: No chest pain, No orthopnea, No PND, No edema, No claudication, No palpitations Abdomen: No pain, No nausea, No vomiting, No diarrhea, No constipation Musculoskeletal: No joint pain, No muscle pain, No swelling, No calf pain Male : No dysuria, No urinary frequency, No incontinence, No nocturia more than once/night, No slowing stream, No hematuria Neurologic: No memory loss, No paralysis, No weakness, No numbness/tingling, No vertigo, No balance problems Psychiatric: No depression symptoms, No anhedonism, No anxiety, No insomnia, No substance abuse Heme: No abnormal bleeding/bruising, No clotting problems, No swollen lymph nodes, No night sweats Endo: No fatigue, No excessive thirst, No excessive urination Skin: No rash, No itch, No new/changing skin lesions, No color change, No bleeding Objective Vital Signs Date Time Temp Pulse Resp B/P (MAP) Pulse Ox O2 Delivery O2 Flow Rate FiO2 07/25/17 15:22 37.0 62 18 138/77 (97) 98 Room Air 07/25/17 12:00 97 Room Air 07/25/17 11:16 37.0 58 18 137/87 (104) 98 07/25/17 08:00 97 Room Air 07/25/17 07:19 37.1 65 18 149/80 (103) 97 Room Air 07/25/17 04:25 37.1 71 18 147/77 (100) 98 Room Air 07/25/17 04:00 Room Air 07/25/17 00:00 Room Air 07/24/17 22:58 36.8 84 16 120/77 (91) 98 Room Air 07/24/17 20:00 98 Room Air 07/24/17 19:01 36.9 93 18 131/57 (81) 98 Room Air Physical Exam General Appearance: WD/WN, no apparent distress Eyes: normal inspection, PERRL, EOMI, sclerae normal ENT: normal ENT inspection, hearing grossly normal, pharynx normal Neck: supple, no adenopathy, thyroid normal, no JVD, no carotid bruits, trachea midline Respiratory/Chest: chest non-tender, lungs clear, normal breath sounds, no respiratory distress, no accessory muscle use Cardiovascular: regular rate, rhythm, no edema, no gallop, no JVD, no murmur Abdomen: normal bowel sounds, non tender, soft, no organomegaly, no pulsatile mass Extremities: normal range of motion, non-tender, normal inspection, no pedal edema, no calf tenderness, normal capillary refill, pelvis stable Neurologic/Psychiatric: or rn II-XII nml as tested, no motor/sensory deficits, alert, normal mood/affect, oriented x 3 Skin: normal color, warm/dry, no rash Lymphatic: no adenopathy Laboratory Results Last 24 Hours Test 07/24/17 18:27 07/24/17 20:34 07/24/17 20:36 07/24/17 22:27 Bedside Glucose 404 mg/dl 311 mg/dl 207 mg/dl Venous Blood pH 7.42 Sodium Level 134 mmol/L Potassium Level 4.5 mmol/L Chloride Level 104 mmol/L Carbon Dioxide Level 24 mmol/L Anion Gap 6.0 mmol/L Blood Urea Nitrogen 15 mg/dl Creatinine 0.97 mg/dl Est Creatinine Clear Calc Drug Dose 101.0 ml/min Estimated GFR () 115.9 Estimated GFR (Non- 100.0 BUN/Creatinine Ratio 15.2 Random Glucose 282 mg/dl Calcium Level 8.3 mg/dl Phosphorus Level 1.8 mg/dl Magnesium Level 2.0 mg/dl Beta-Hydroxybutyric Acid 5.86 mg/dL Test 07/24/17 23:35 07/25/17 00:38 07/25/17 02:18 07/25/17 04:05 Venous Blood pH 7.40 7.40 Sodium Level 139 mmol/L 138 mmol/L Potassium Level 3.9 mmol/L 3.7 mmol/L Chloride Level 107 mmol/L 107 mmol/L Carbon Dioxide Level 26 mmol/L 27 mmol/L Anion Gap 6.0 mmol/L 4.0 mmol/L Blood Urea Nitrogen 12 mg/dl 10 mg/dl Creatinine 0.79 mg/dl 0.69 mg/dl Est Creatinine Clear Calc Drug Dose 124.0 ml/min 141.9 ml/min Estimated GFR () 133.9 141.6 Estimated GFR (Non- 115.5 122.1 BUN/Creatinine Ratio 14.6 14.9 Random Glucose 151 mg/dl 84 mg/dl Calcium Level 7.9 mg/dl 8.1 mg/dl Phosphorus Level 2.3 mg/dl 2.0 mg/dl Magnesium Level 2.1 mg/dl 1.9 mg/dl Beta-Hydroxybutyric Acid 3.27 mg/dL 12.10 mg/dL Bedside Glucose 128 mg/dl 121 mg/dl Test 07/25/17 05:06 07/25/17 07:00 07/25/17 08:01 07/25/17 09:01 Bedside Glucose 76 mg/dl 94 mg/dl 159 mg/dl Venous Blood pH 7.42 Sodium Level 138 mmol/L Potassium Level 3.9 mmol/L Chloride Level 106 mmol/L Carbon Dioxide Level 27 mmol/L Anion Gap 5.0 mmol/L Blood Urea Nitrogen 9 mg/dl Creatinine 0.61 mg/dl Est Creatinine Clear Calc Drug Dose 167.5 ml/min Estimated GFR () 148.9 Estimated GFR (Non- 128.5 BUN/Creatinine Ratio 15.4 Random Glucose 72 mg/dl Calcium Level 8.3 mg/dl Phosphorus Level 1.8 mg/dl Magnesium Level 1.8 mg/dl Beta-Hydroxybutyric Acid 9.42 mg/dL Test 07/25/17 10:34 07/25/17 11:59 07/25/17 12:17 07/25/17 14:20 Bedside Glucose 177 mg/dl 141 mg/dl 235 mg/dl Venous Blood pH 7.43 Sodium Level 137 mmol/L Potassium Level 4.1 mmol/L Chloride Level 106 mmol/L Carbon Dioxide Level 27 mmol/L Anion Gap 4.0 mmol/L Blood Urea Nitrogen 7 mg/dl Creatinine 0.66 mg/dl Est Creatinine Clear Calc Drug Dose 154.8 ml/min Estimated GFR () 144.2 Estimated GFR (Non- 124.4 BUN/Creatinine Ratio 11.3 Random Glucose 154 mg/dl Calcium Level 8.3 mg/dl Phosphorus Level 1.5 mg/dl Magnesium Level 2.0 mg/dl Beta-Hydroxybutyric Acid 9.17 mg/dL Test 07/25/17 16:10 07/25/17 16:29 Bedside Glucose 210 mg/dl Assessment and Plan 77-year-old white male admitted because of possible DKA with hyperglycemia per report, he has 7-8 episodes of nausea and vomiting since 1 days before the ER visit. he ate chicken tenders from sheets with extra hot sauce the day before, and woke up yesterday and initially feeling well, and then developed nausea and vomiting , was sipping propel drink frequently. He reports he continued to have episodes of nausea and vomiting overnight, and then upon the urging of his family on the day of admission, who presents emergency department for assessment. He typically takes Lantus insulin at 12:30 1:00 in the morning when he gets home from work. He did take his Lantus last night at 3:00 AM. He has not had any recent travels or any sick exposures. Possible DKA in a type I diabetic Peripheral oral intake and dehydration secondary to gastroenteritis due to food toxin Bicarbonate was no upon admission however pH was not acidosis Has been on telemetry unit due to need for frequent glucose monitoring. He took his usual dosing of Lantus 20 units at approximately 3 AM. Stop insulin drip, blood glucose before meals and at bedtime, restart patient's Lantus insulin, Pharmacy blood glucose consultation He reports he is feeling better after 2 L of fluid in the emergency department. Severe hypophosphatemia, replaced, Check a BMP, magnesium, phosphorus, venous blood gas, beta hydroxybutyric acid Famotidine 20 mg IV every 12 hours with first dose now. EVD prophylaxis is SCD Continued [facility] stay due to: multiple IV medications needed Discharge planning: home
[2017-07-25 17:01] LABS: BLOOD UREA NITROGEN 6 mg/dl (7-18); BUN/CREATININE RATIO 9.8 (10-20); CALCIUM 8.4 mg/dl (8.5-10.1); CARBON DIOXIDE 28 mmol/L (21-32); CHLORIDE 103 mmol/L (98-107); CREATININE 0.58 mg/dl (0.60-1.40); GLUCOSE 198 mg/dl (70-99); MAGNESIUM 1.8 mg/dl (1.8-2.4); POTASSIUM 4.2 mmol/L (3.5-5.1); SODIUM 137 mmol/L (136-145)
[2017-07-26] VITALS (8 sets, daily range): BP systolic 124–158; BP diastolic 70–84; PULSE 57–83; TEMP 36.4–37.1; O2SAT 93–97
[2017-07-26] MEDS: SODIUM CHLOR 0.45% + 20MEQ KCL 1,000 ML IV SCH ×2 (04:01→11:57)
[2017-07-26] MEDS: INSULIN ASPART 100 UNITS/ML 3 ML PEN SC SCH ×2 (08:08→11:58)
[2017-07-26] MEDS: CHOLECALCIFEROL 1000 INTER.UNIT TAB PO SCH (08:09)
[2017-07-26] MEDS: FAMOTIDINE IV INJ 20 MG in DEXTROSE 5% 100ML 100 ML IV SCH (08:13)
--- NOTE | 2017-07-26 14:10 | Discharge Instructions ---
Discharge Instructions Date of Service Jul 26, 2017. Admission Reason for Admission: Diabetic Ketoacidosis; Gastroenteritis Due To Food Discharge Discharge Diagnosis / Problem: Possible DKA in a type I diabetic Discharge Goals Goal(s): Decrease discomfort, Improve function, Increase independence, Improve disease control, Improve nutritional status, Learn about illness, Diagnostic testing, Therapeutic intervention, Prevent Disease Progression, Specific goals Activity Recommendations Activity Limitations: resume your previous activity . Instructions / Follow-Up Instructions / Follow-Up you possible DKA with hyperglycemia You have gastroenteritis due to food toxin - you need to follow up with your primary care physician in 1 week, - take medication as instructed, never overdose or any misuse, or take with alcohol, because misuse of medicine may cause organ damage or , call your primary care physician if have questions of medicaitons. - call your primary care physician OR go to local emergency room if has any fever/chill, chest pain, shortness of breathing, nausea/vomiting/abdominal pain , facial droop/slurry speech/local weakness, or if has any questions. - fall precaution - diet as instructed - you need to follow up with your subspecialist, such as endocrinology if needed - you should understand that it is important to follow up the above instruction , and "not following the above instruction" may cause delayed or missed care of your medical conditions which may cause permanent organ damage and even . Current Hospital Diet Patient's current hospital diet: Diabetes Type 1 Diet Discharge Diet Recommended Diet: Diabetes Type 1 Diet Procedures Procedures Performed: No Pending Studies Studies pending at discharge: no Laboratory Results Hemoglobin A1c Test 05/27/17 16:22 Range/Units Estimated Average Glucose 189 mg/dl Hemoglobin A1c 8.2 H 4.5-5.6 % Lipid Panel Test 05/27/17 16:22 Range/Units Triglycerides Level 116 0-150 mg/dl Cholesterol Level 207 H 0-200 mg/dl HDL Cholesterol 89 mg/dl Cholesterol/HDL Ratio 2.3 LDL Cholesterol, Calculated 95 mg/dl Medical Emergencies . Who to Call and When: Medical Emergencies: If at any time you feel your situation is an emergency, please call 911 immediately. . Non-Emergent Contact Non-Emergency issues call your: Primary Care Provider . . "Provider Documentation" section prepared by Hunter Ambrose. . VTE Core Measure Inpt VTE Proph given/why not?: SCD's
--- NOTE | 2017-07-26 14:16 | Discharge Summary ---
Discharge Summary Date of Service Jul 26, 2017. Discharge Summary Admission Date: Jul 24, 2017 at 12:17 Discharge Date: Jul 26, 2017 Principal Diagnosis: possible DKA with hyperglycemia Problems/Secondary Diagnoses: gastroenteritis due to food toxin Immunizations: Have You Had Influenza Vaccine: Unknown History of Tetanus Vaccine?: Unknown History of Pneumococcal: Unknown History of Hepatitis B Vaccine: Unknown Procedures: No Consultations: No Medication Reconciliation Continued Medications: Cholecalciferol (Vitamin D 1000 Unit) 1,000 Unit Cap 1000 INTER.UNIT PO DAILY, CAP Glucagon (Glucagon Emergency Kit) 1 Mg Kit 1 MG INJ UD Insulin Aspart (Novolog) 100 Units/Ml Inj 1 DOSE SQ DIRECTED PER SLIDING SCALE (correction factor of 30 and carbohydrate ratio of 10) Insulin Glargine (Lantus Solostar) 100 Unit/Ml Inj 20 UNITS SC QPM, PEN Discharge Exam no more nausea vomiting, tolerate diet, blood glucose around 150 to 200 Review of Systems: Eyes: No worsening of vision, No eye pain, No redness, No discharge, No diplopia, No problem reported Respiratory: No cough, No sputum, No wheezing, No shortness of breath, No dyspnea on exertion, No dyspnea at rest, No hemoptysis, No problem reported Cardiovascular: No chest pain, No orthopnea, No PND, No edema, No claudication, No palpitations, No problem reported Abdomen: No pain, No nausea, No vomiting, No diarrhea, No constipation, No GI bleeding, No problem reported Genitourinary - Male: No hematuria, No dysuria, No urinary frequency, No urinary urgency, No urinary hesitancy, No urinary retention, No urinary incontinence, No penile discharge, No lesions, No impotence, No problem reported Neurologic: No memory loss, No paralysis, No weakness, No numbness/tingling , No vertigo, No balance problems, No problem reported Psychiatric: No depression symptoms, No anhedonism, No anxiety, No insomnia , No substance abuse, No problem reported Endocrine: No fatigue, No excessive thirst, No excessive urination, No problem reported Hematologic / Lymphatic: No abnormal bleeding/bruising, No clotting problems , No swollen lymph nodes, No night sweats, No problem reported Integumentary: No rash, No itch, No new/changing skin lesions, No color change, No bleeding, No problem reported Physical Exam: General Appearance: WD/WN, no apparent distress Eyes: normal inspection, PERRL, EOMI ENT: normal ENT inspection, hearing grossly normal Neck: supple, no adenopathy Respiratory/Chest: chest non-tender, lungs clear Cardiovascular: regular rate, rhythm, no edema Abdomen / GI: normal bowel sounds, non tender, soft Extremities: normal inspection, no calf tenderness Neurologic/Psychiatric: lieutenant governor II-XII nml as tested, no motor/sensory deficits , alert, normal mood/affect, normal reflexes Skin: normal color, warm/dry Hospital Course 77-year-old white male admitted because of possible DKA with hyperglycemia, resolved per report, he has 7-8 episodes of nausea and vomiting since 1 days before the ER visit. he ate chicken tenders from sheets with extra hot sauce the day before, and woke up yesterday and initially feeling well, and then developed nausea and vomiting , was sipping propel drink frequently. He reports he continued to have episodes of nausea and vomiting overnight, and then upon the urging of his family on the day of admission, who presents emergency department for assessment. He typically takes Lantus insulin at 12:30 1:00 in the morning when he gets home from work. He did take his Lantus last night at 3:00 AM. He has not had any recent travels or any sick exposures. Possible DKA in a type I diabetic , resolved Peripheral oral intake and dehydration secondary to gastroenteritis due to food toxin Bicarbonate was no upon admission however pH was not acidosis Has been on telemetry unit due to need for frequent glucose monitoring, doing well He took his usual dosing of Lantus 20 units at approximately 3 AM. Stop insulin drip, blood glucose before meals and at bedtime, restarted patient 's Lantus insulin, glucose fairly controlled Pharmacy blood glucose consultation He reports he is feeling better after 2 L of fluid in the emergency department. Severe hypophosphatemia, replaced, Check a BMP, magnesium, phosphorus, venous blood gas, beta hydroxybutyric acid Famotidine 20 mg IV every 12 hours, DVT prophylaxis is SCD Instructions / Follow-Up you possible DKA with hyperglycemia You have gastroenteritis due to food toxin - you need to follow up with your primary care physician in 1 week, - take medication as instructed, never overdose or any misuse, or take with alcohol, because misuse of medicine may cause organ damage or , call your primary care physician if have questions of medicaitons. - call your primary care physician OR go to local emergency room if has any fever/chill, chest pain, shortness of breathing, nausea/vomiting/abdominal pain , facial droop/slurry speech/local weakness, or if has any questions. - fall precaution - diet as instructed - you need to follow up with your subspecialist, such as endocrinology if needed - you should understand that it is important to follow up the above instruction , and "not following the above instruction" may cause delayed or missed care of your medical conditions which may cause permanent organ damage and even . Total Time Spent: Greater than 30 minutes This includes examination of the patient, discharge planning, medication reconciliation, and communication with other providers. Discharge Instructions Please refer to the electronic Patient Visit Report (Discharge Instructions) for additional information. Additional Copies To RV. Montgomery MD
[2017-07-26] MEDS ORDERED: FAMOTIDINE 20 MG TAB PO SCH (21:00)
== END 2017-07-26 14:57 | disposition home or self-care (01) ==
LOC: C.EDB 09:38 → C.MED 12:17 → ENRESERV 12:44
PROVIDERS: ADMIT Hospitalist; ATTEND Hospitalist
DX: A05.9 Bacterial foodborne intoxication, unspecified (principal); E10.65 Type 1 diabetes mellitus with hyperglycemia; E86.0 Dehydration; F17.200 Nicotine dependence, unspecified, uncomplicated; E87.2 Acidosis; R11.2 Nausea with vomiting, unspecified; Z79.4 Long term (current) use of insulin

== ENCOUNTER 2017-10-26 16:16 | Emergency (ER) | payer OTHER ==
[~2017-10-26] VITALS: Ht 175.3 cm; Wt 74.2 kg
[2017-10-26 16:23] VITALS: Ht 175.3 cm; Wt 74.2 kg
[2017-10-26] MEDS ORDERED: ONDANSETRON INJ 2 MG/ML 2 ML VIAL IV STA (18:09)
[2017-10-26] MEDS ORDERED: SODIUM CHLORIDE 0.9% 1000ML 1,000 ML IV STA (18:09)
[2017-10-26 18:29] LABS: BASO % 0.2 %; BASO ABS # 0.03 K/uL (0-0.2); COMPLETE YES; EOS % 0.1 %; HEMATOCRIT 42.3 % (42-52); IG% 0.2 %; LYMPH % 11.4 %; LYMPH ABS # 1.39 K/uL (1.2-3.4); MEAN CELL VOLUME 100.5 fL (80-100); MEAN CORPUSCULAR HEMOGLOBIN 35.4 pg (25-34); MEAN CORPUSCULAR HGB CONC 35.2 g/dl (32-36); MEAN PLATELET VOLUME 10.1 fL (7.4-10.4); MONO % 8.9 %; NEUT % 79.2 %; PLATELET COUNT 202 K/uL (130-400); RED BLOOD COUNT 4.21 M/uL (4.7-6.1); WHITE BLOOD COUNT 12.21 K/uL (4.8-10.8)
[2017-10-26 18:41] LABS: PARTIAL THROMBOPLASTIN RATIO 0.9
[2017-10-26 18:47] LABS: BUN/CREATININE RATIO 22.3 (10-20); CALCIUM 9.1 mg/dl (8.5-10.1); CREATININE 0.84 mg/dl (0.60-1.40); POTASSIUM 3.8 mmol/L (3.5-5.1)
[2017-10-26 18:56] LABS: BETA-HYDROXYBUTYRATE 3.3 mg/dL (0.2-2.81)
[2017-10-26 19:02] LABS: VEN BLD GAS O2 SATURATION 66.6 %; VEN BLOOD GAS BASE EXCESS 3.1 mEq/L
[2017-10-26 19:16] LABS: MANUAL MICROSCOPIC REQUIRED? NO; REVIEW REQ? NO; URINE APPEARANCE CLEAR (CLEAR); URINE BILIRUBIN NEG (NEG); URINE COLOR DK YELLOW; URINE NITRITE NEG (NEG); URINE SPECIFIC GRAVITY 1.029 (1.000-1.030); UROBILINOGEN NEG (NEG)
[2017-10-26] MEDS ORDERED: ONDA4TAB10 SL (19:41)
[2017-10-26 19:46] VITALS: BP 140/72; PULSE 88; TEMP 36.8; O2SAT 99
--- NOTE | 2017-10-26 20:03 | EMERGENCY ROOM VISIT NOTE ---
History Report prepared by [place]: Janeth Whalen Under the Supervision of: Dr. Gerry Painter M.D. 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 The patient has a history of DM and has an insulin pump in place. This morning at work he began to feel nauseated, vomiting and generally unwell. He went to the bathroom and noticed that his pump had become disconnected from the reservoir. He is unsure when this occurred. The patient checked his sugar and it was 280. He reconnected the pump and states that since then his sugars have started to come down. His most recent BSG was 209. He had 6 episodes of vomiting today and was unable to keep water down. The patient denies fevers, chest pain, shortness of breath, abdominal pain, and urinary symptoms. He has been admitted to the hospital in the past for possible DKA and states that he was experiencing similar symptoms at that time. 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 Review of Systems See HPI for pertinent positives & negatives. A total of 10 systems reviewed and were otherwise negative. Past Medical & Surgical Medical Problems: (1) Avulsion of skin of finger (2) Gastroenteritis due to food toxin (3) History of diabetes mellitus Family History No pertinent history stated. Social History Smoking Status: Current Every Day Smoker Alcohol Use: occasionally Drug Use: cocaine Marital Status: in relationship Occupation Status: employed Current/Historical Medications Scheduled Glucagon (Glucagon Emergency Kit), 1 MG INJ UD Insulin Aspart (Novolog), 1 DOSE SQ DIRECTED Ondasetron Odt (Zofran Odt), 4 MG SL Q6H Allergies Coded Allergies: No Known Allergies (Unverified , 10/26/17) Physical Exam Vital Signs Date Time Temp Pulse Resp B/P (MAP) Pulse Ox O2 Delivery O2 Flow Rate FiO2 10/26/17 19:46 36.8 88 18 140/72 99 10/26/17 18:13 95 10/26/17 18:04 76 18 151/82 98 Room Air 10/26/17 16:23 36.8 96 18 134/88 96 Room Air Physical Exam Constitutional: Vital signs reviewed. Eyes: Pupils are equal round reactive to light. Conjunctiva are noninjected. ENT: Pharynx is clear without erythema or exudate. Mucous membranes are dry. Neck supple without meningeal signs. Respiratory: Clear to auscultation bilaterally. Breath sounds are equal bilaterally. Cardiovascular: Regular rate and rhythm. No rubs or gallops. GI: Soft, nondistended and nontender. Bowel sounds are present. Insulin pump right upper abdomen, no signs of infection. Musculoskeletal: No peripheral edema. No lower extremity tenderness. Integumentary: No cyanosis. Neurological: The patient is awake and alert. No focal deficits. Psychiatric: Normal affect. Medical Decision & Procedures Laboratory Results 10/26/17 18:18 Red Blood Count 4.21, Mean Corpuscular Volume 100.5, Mean Corpuscular Hemoglobin 35.4, Mean Corpuscular Hemoglobin Concent 35.2, Mean Platelet Volume 10.1, Neutrophils (%) (Auto) 79.2, Lymphocytes (%) (Auto) 11.4, Monocytes (%) ( Auto) 8.9, Eosinophils (%) (Auto) 0.1, Basophils (%) (Auto) 0.2, Neutrophils # ( Auto) 9.66, Lymphocytes # (Auto) 1.39, Monocytes # (Auto) 1.09, Eosinophils # ( Auto) 0.01, Basophils # (Auto) 0.03 10/26/17 18:18 Test 10/26/17 18:18 10/26/17 18:46 10/26/17 19:03 White Blood Count 12.21 K/uL (4.8-10.8) Red Blood Count 4.21 M/uL (4.7-6.1) Hemoglobin 14.9 g/dL (14.0-18.0) Hematocrit 42.3 % (42-52) Mean Corpuscular Volume 100.5 fL (80-100) Mean Corpuscular Hemoglobin 35.4 pg (25-34) Mean Corpuscular Hemoglobin Concent 35.2 g/dl (32-36) Platelet Count 202 K/uL (130-400) Mean Platelet Volume 10.1 fL (7.4-10.4) Neutrophils (%) (Auto) 79.2 % Lymphocytes (%) (Auto) 11.4 % Monocytes (%) (Auto) 8.9 % Eosinophils (%) (Auto) 0.1 % Basophils (%) (Auto) 0.2 % Neutrophils # (Auto) 9.66 K/uL (1.4-6.5) Lymphocytes # (Auto) 1.39 K/uL (1.2-3.4) Monocytes # (Auto) 1.09 K/uL (0.11-0.59) Eosinophils # (Auto) 0.01 K/uL (0-0.5) Basophils # (Auto) 0.03 K/uL (0-0.2) RDW Standard Deviation 45.3 fL (36.4-46.3) RDW Coefficient of Variation 12.5 % (11.5-14.5) Immature Granulocyte % (Auto) 0.2 % Immature Granulocyte # (Auto) 0.03 K/uL (0.00-0.02) Prothrombin Time 10.0 SECONDS (9.0-12.0) Prothromb Time International Ratio 1.0 (0.9-1.1) Activated Partial Thromboplast Time 22.5 SECONDS (21.0-31.0) Partial Thromboplastin Ratio 0.9 Anion Gap 9.0 mmol/L (3-11) Est Creatinine Clear Calc Drug Dose 121.6 ml/min Estimated GFR () 130.6 Estimated GFR (Non- 112.6 BUN/Creatinine Ratio 22.3 (10-20) Calcium Level 9.1 mg/dl (8.5-10.1) Total Bilirubin 0.4 mg/dl (0.2-1) Direct Bilirubin 0.1 mg/dl (0-0.2) Aspartate Amino Transf (AST/SGOT) 53 U/L (15-37) Alanine Aminotransferase (ALT/SGPT) 36 U/L (12-78) Alkaline Phosphatase 53 U/L (45-117) Total Protein 7.4 gm/dl (6.4-8.2) Albumin 4.1 gm/dl (3.4-5.0) Beta-Hydroxybutyric Acid 3.30 mg/dL (0.2-2.81) Venous Blood pH 7.42 (7.36-7.41) Venous Blood Partial Pressure CO2 44 mmHg (38.0-50.0) Venous Blood Partial Pressure O2 35 mmHg Venous Blood HCO3 28 mmol/L Venous Blood Oxygen Saturation 66.6 % Venous Blood Base Excess 3.1 mEq/L Urine Color DK YELLOW Urine Appearance CLEAR (CLEAR) Urine pH 5.0 (4.5-7.5) Urine Specific [place] 1.029 (1.000-1.030) Urine Protein TRACE (NEG) Urine Glucose (UA) 3+ (NEG) Urine Ketones 1+ (NEG) Urine Occult Blood NEG (NEG) Urine Nitrite NEG (NEG) Urine Bilirubin NEG (NEG) Urine Urobilinogen NEG (NEG) Urine Leukocyte Esterase NEG (NEG) Urine WBC (Auto) 1-5 /hpf (0-5) Urine RBC (Auto) 0-4 /hpf (0-4) Urine Hyaline Casts (Auto) 1-5 /lpf (0-5) Urine Epithelial Cells (Auto) 10-20 /lpf (0-5) Urine Bacteria (Auto) NEG (NEG) Laboratory results as reviewed by me. Medications Administered Medications (Trade) Dose Ordered Sig/Amber Route Start Time Stop Time Status Last Admin Dose Admin Sodium Chloride 1,000 ml @ 999 mls/hr Q1H1M STAT IV 10/26/17 18:09 10/26/17 19:22 DC 10/26/17 18:33 999 MLS/HR ED Course 1801: The patient was evaluated in room C10. A complete history and physical exam was performed. 1808: Zofran 4 mg IV - Pt declined, NSS 1000 ml @ 999 mls/hr IV 1827: The patient's BSG is 95 and he has not eaten anything yet. 1938: I reassessed the patient at this time. He is feeling better and resting comfortably. He ate dinner and is ready to go home. I discussed the results and treatment plan with the patient. I answered all pertaining questions that he had. He expressed understanding and verbalized agreement. The patient will be discharged home. Medical Decision This is a 37-year-old male who presents with vomiting and hyperglycemia. Differential diagnosis includes DKA, dehydration, electrolyte abnormality, gastritis, foodborne illness. I did perform a limited focused review of portions of the patient's old chart on the electronic medical record. The patient was admitted in July 2017 for possible DKA. I did evaluate the patient as noted above. Patient is presenting with 6 episodes of vomiting today. He states that he is unable to keep down any water. He does appear clinically dehydrated. He does have a prior history of DKA and was concerned about this. He did state that his insulin pump did become disconnected and an unknown time and his sugar was 280. IV access was established. I did treat the patient with IV Zofran and normal saline IV. I did order and personally review the patient's urinalysis as described above. I did order and review the patient's blood work as noted in the electronic medical record. His blood sugar is 91. He states he did not eat or drink anything. He was given something to eat and drink. I did reassess the patient. He was able to eat dinner and drink without any difficulty. I did discuss the test results with him. He is feeling better. I did recommend he follow closely with his doctor and keep a close eye on his blood sugars. He was discharged with a prescription for Zofran. Medication Reconcilliation Current Medication List: was personally reviewed by me Blood Pressure Screening Patient's blood pressure: Elevated blood pressure Blood pressure disposition: Referred to PCP Impression Primary Impression: Diabetes mellitus with hyperglycemia Additional Impressions: Complication of insulin pump Vomiting Scribe Attestation The scribe's documentation has been prepared under my direct and personally reviewed by me in its entirety. I confirm that the note above accurately reflects all work, treatment, procedures, and medical decision making performed by me. Departure Information Dispostion Home / Self-Care Prescriptions Ondasetron Odt (ZOFRAN ODT) 4 Mg Tab 4 MG SL Q6H for Nausea, #8 TAB Prov: Gerry Painter M.D. 10/26/17 Referrals No Doctor, Assigned (PCP) RV. Montgomery MD Forms HOME CARE DOCUMENTATION FORM, IMPORTANT VISIT INFORMATION, WORK / SCHOOL INSTRUCTIONS Patient Instructions My [facility] Additional Instructions You have been examined and treated today on an emergency basis only. This is not a substitute for, or an effort to provide, complete comprehensive medical care. It is impossible to recognize and treat all injuries or illnesses in a single emergency department visit. It is therefore important that you follow up closely with your physician. Call as soon as possible for an appointment. Return for worsening symptoms or if you develop fever, abdominal pain or any other concerning symptoms. 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
== END 2017-10-26 19:47 | disposition home or self-care (01) ==
LOC: C.EDB 16:19 → C.EDC 19:47
DX: E11.65 Type 2 diabetes mellitus with hyperglycemia (principal); T85.624A Displacement of insulin pump, initial encounter; X58.XXXA Exposure to other specified factors, initial encounter; R11.10 Vomiting, unspecified; F17.200 Nicotine dependence, unspecified, uncomplicated; Z87.19 Personal history of other diseases of the digestive system; Z79.4 Long term (current) use of insulin; Z79.899 Other long term (current) drug therapy

== ENCOUNTER → 2017-12-24 | Outpatient (CLI) | payer OTHER ==
[~2017-12-24] MED LIST changes: -CHOL100027 PO; -INSDGIPEN SC; +ONDA4TAB10 SL
[2017-12-24 14:58] LABS: ALT/SGPT 44 U/L (12-78); BLOOD UREA NITROGEN 12 mg/dl (7-18); CALCIUM 8.8 mg/dl (8.5-10.1); CARBON DIOXIDE 27 mmol/L (21-32); CREATININE 0.84 mg/dl (0.60-1.40); GLUCOSE 116 mg/dl (70-99); POTASSIUM 3.9 mmol/L (3.5-5.1); SODIUM 141 mmol/L (136-145)
[2017-12-24 15:08] LABS: ALKALINE PHOSPHATASE 46 U/L (45-117); AST/SGOT 51 U/L (15-37); TOTAL PROTEIN 7.6 gm/dl (6.4-8.2)
[2017-12-25 06:57] LABS: HEMOGLOBIN A1C 7.3 % (4.5-5.6)
== END | disposition home or self-care (01) ==
LOC: C.LAB1850 13:27
PROVIDERS: ATTEND Internal Medicine Endocrinology, Diabetes & Metabolism
DX: E55.9 Vitamin D deficiency, unspecified (principal); E10.649 Type 1 diabetes mellitus with hypoglycemia without coma; E10.65 Type 1 diabetes mellitus with hyperglycemia

== ENCOUNTER → 2018-03-22 | Outpatient (CLI) | payer OTHER ==
[2018-03-23 07:40] LABS: HEMOGLOBIN A1C 7.1 % (4.5-5.6)
== END | disposition home or self-care (01) ==
LOC: C.LAB1850 15:47
PROVIDERS: ATTEND Internal Medicine Endocrinology, Diabetes & Metabolism
DX: E55.9 Vitamin D deficiency, unspecified (principal); E10.9 Type 1 diabetes mellitus without complications